=== PATIENT | male | born 1945 | race Two or more races ===

== ENCOUNTER 2017-10-03 09:10 | Day surgery (SDC) | payer OTHER ==
[2017-10-03] MEDS ORDERED: TETRACAINE 0.5% OPHTH 1 DOSE AFFEYE ONE ×2 (09:30→12:45)
[2017-10-03] MEDS ORDERED: VIGAMOX 0.5% OPHTH 1 DOSE AFFEYE ONE ×5 (09:31→13:11)
[2017-10-03] MEDS ORDERED: PROLENSA OPHTH 1 DOSE AFFEYE ONE (09:42)
[2017-10-03] MEDS ORDERED: ALPHAGAN-P OPHTH 1 DOSE AFFEYE ONE (09:43)
[2017-10-03] MEDS ORDERED: CYCLOGYL 1% OPHTH 1 DOSE OP ONE ×4 (09:44→09:47)
[2017-10-03] MEDS ORDERED: MYDRIACIL OPHTH 1 DOSE AFFEYE ONE ×4 (09:44→09:47)
[2017-10-03] MEDS ORDERED: AK-DILATE 2.5% OPHTH 1 DOSE OP ONE ×4 (09:44→09:47)
[2017-10-03] MEDS ORDERED: NS 500 ML IV 500 ML IV ONE (10:27)
[2017-10-03] MEDS ORDERED: BETADINE OPHTH SOLN 5% EACHEYE ONE (12:45)
[2017-10-03] MEDS ORDERED: ADRENALINE CHL INJ IJ ONE ×2 (12:51→13:00)
[2017-10-03] MEDS ORDERED: DUOVISC IO ONE ×2 (12:52→13:00)
[2017-10-03] MEDS ORDERED: XYLOCAINE-MPF 1% IJ ONE ×2 (12:52→13:00)
[2017-10-03] MEDS ORDERED: BSS OPHTH (PLAIN) 500 ML with VANCOMYCIN HCL 500 MG VIAL 25 MG, ADRENALINE CHL INJ 1 MG IR ONE ×6 (12:53)
[2017-10-03 13:42] VITALS: BP 154/65
[2017-10-03] MEDS ORDERED: DIPRIVAN VIAL ONE (15:47)
== END 2017-10-03 13:35 | disposition home or self-care (01) ==
LOC: SURG1 09:10
PROVIDERS: ATTEND Ophthalmology
PROC: 08DK3ZZ Extraction of Left Lens, Percutaneous Approach (ICD-10-PCS; principal; 2017-10-03 19:30)
PROC: 08RK3JZ Replacement of Left Lens with Synthetic Substitute, Percutaneous Approach (ICD-10-PCS; principal; 2017-10-03 19:30)
DX: H25.12 Age-related nuclear cataract, left eye (principal); H25.012 Cortical age-related cataract, left eye
CPT/HCPCS: 99100; A4217; J0170; J3370; J3490